=== PATIENT | male | born 1995 | race African-American/Black ===

== ENCOUNTER 2025-04-16 09:47 | Emergency (ER) | payer BC, OTHER ==
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
[2025-04-16] MEDS ORDERED: ONDANSETRON 4 MG (ODT) TAB ONE (12:58)
[2025-04-16 19:33] VITALS: O2SAT 100
[2025-04-16 19:36] VITALS: BP 116/85; TEMP 98
== END 2025-04-16 13:05 | disposition home or self-care (01) ==
LOC: ER 09:47
DX: S29.012A Strain of muscle and tendon of back wall of thorax, initial encounter (principal); S40.012A Contusion of left shoulder, initial encounter; V49.40XA Driver injured in collision with unspecified motor vehicles in traffic accident, initial encounter
CPT/HCPCS: 70450; 72125; 71045; 72070; 73030; 99284; Q0162